=== PATIENT | male | born 1970 | race Caucasian/White ===

== ENCOUNTER 2019-11-24 10:54 | Emergency (ER) | payer OTHER ==
[~2019-11-24] VITALS: Ht 157.5 cm; Wt 77.1 kg
[2019-11-24 11:02] VITALS: Ht 157.5 cm; Wt 77.1 kg
[2019-11-24 13:45] VITALS: BP 154/98
== END 2019-11-24 13:45 | disposition home or self-care (01) ==
LOC: ED 10:54
DX: S61.214A Laceration without foreign body of right ring finger without damage to nail, initial encounter (principal); E78.00 Pure hypercholesterolemia, unspecified; K21.9 Gastro-esophageal reflux disease without esophagitis; W31.2XXA Contact with powered woodworking and forming machines, initial encounter; Y93.89 Activity, other specified; Y92.89 Other specified places as the place of occurrence of the external cause; Y99.8 Other external cause status
CPT/HCPCS: 90715; J2001; Q0092

== ENCOUNTER 2020-03-10 01:02 | Inpatient (IN) | payer OTHER ==
[~2020-03-10] VITALS: Ht 157.5 cm; Wt 80.8 kg
[2020-03-10 01:08] VITALS: Ht 157.5 cm; Wt 80.8 kg
--- NOTE | 2020-03-10 01:39 | NUR ---
PT STATES THAT ABD PAIN STARTED 3 DAYS AGO. AWAKE AND ALERT. AA/OX4. RESP EVEN LAUREL UNLABORED. STATES THAT ABD DISTENTION STARTED AT 1500 TODAY. ABD IS DISTENTED, SOFT, ROUND AND NON RIGID. STATES THAT EPIGASTRIC PAIN RADIATES TO LEFT SHOULDER. DENIES N/V. PT PLACED IN GOWN AND ON FULL CM. IV INSERTED. PT DENIES HAVING TO VOID AT THIS TIME. WILL CONT TO MONITOR.
[2020-03-10 01:45] LABS: BASOPHIL % 0.7 % (0-2); PLATELET COUNT 165 x10^3mcL (130-400); RED CELL DISTRIBUTION WIDTH 12.7 % (11.5-14.5)
[2020-03-10 02:01] LABS: CALCIUM 8.2 mg/dL (8.5-10.1); CARBON DIOXIDE 26.5 mmol/L (21-32); CHLORIDE SERUM 109 mmol/L (98-107); CREATININE SERUM 1.2 mg/dL (0.7-1.3); GFR1 > 60 mL/min; GLUCOSE SERUM 150 mg/dL (74-106); POTASSIUM SERUM 4.1 mmol/L (3.5-5.1); SODIUM SERUM 145 mmol/L (136-145)
[2020-03-10 02:06] LABS: ALBUMIN 3.7 g/dL (3.4-5.0); ALKALINE PHOSPHATASE 127 U/L (46-116); ALT/SGPT 42 U/L (16-63); AST/SGOT 14 U/L (15-37); BILIRUBIN TOTAL 0.44 mg/dL (0.20-1.00); LIPASE 997 IU/L (73-393); TOTAL PROTEIN, SERUM 6.5 g/dL (6.4-8.2)
--- NOTE | 2020-03-10 02:14 | NUR ---
PT AWAKE AND ALERT. SITTING IN BED. AA/OX4. RESP EVEN AND UNLABORED. PT ON FULL CM. WILL CONT TO MONITOR.
--- NOTE | 2020-03-10 03:13 | NUR ---
PT SITTING IN BED IN POSITION OF COMFORT. AWAKE AND ALERT. RESP EVEN AND UNLABORED, URINE COLLECTED. PT ON FULL CM. WILL CONT TO MONITOR.
--- NOTE | 2020-03-10 04:14 | NUR ---
REPORT CALLED TO ISACC RODNEY TO ASSUME CARE OF PT AT THIS TIME.
--- NOTE | 2020-03-10 04:20 | NUR ---
RECEIVED PT FROM ED VIA WHEELCHAIR, CAME IN DUE TO ABDOMINAL PAIN AND BLOATING. AAOX4. DENIES HEADACHE/DIZZINESS. ABLE TO FOLLOW COMMANDS. NO SOB NOTED, LUNG SOUNDS CTA, O2 SAT=98%, RA. DENIES CHEST PAIN/PRESSURE. PULSES ARE PALPABLE. NO EDEMA NOTED. STATED THAT HE HAS 8/10 SHARP AND CONSTANT ABDOMINAL PAIN AND C/O BLOATING. ABDOMEN IS DISTENDED AND FIRM. BOWEL SOUNDS ACTIVE. LAST BM=03/09/20. DENIES NAUSEA/VOMITING. VOIDS. IV SITE PATENT AND INTACT. SIDE RAILS UPX2. CALL LIGHT ON REACH. WILL CONT TO MONITOR
[2020-03-10 04:32] VITALS: BP 135/83
--- NOTE | 2020-03-10 04:53 | NUR ---
PT MEDICATED W/ 4 MG MORPHINE SLOW IVP FOR C/O 02/21 ABDOMINAL PAIN DESCRIBED SHARP AND CONSTANT. CALCIUM LEVEL=8.2, MEDICATED W/ CALCIUM GLUCONATE 1000 MG IN 50 ML NS ORDERED.
--- NOTE | 2020-03-10 05:30 | NUR ---
PT HAS HIS EYES CLOSED, AROUSABLE TO VERBAL STIMULI. NO S/S OF PAIN AND SOB. NEEDS ARE ATTENDED. IV SITE PATENT AND INTACT. SIDE RAILS UPX2. CALL LIGHT ON REACH. WILL CONT TO MONITOR
--- NOTE | 2020-03-10 07:19 | NUR ---
REPORT GIVEN TO [facility] FOR CONTINUITY OF CARE
[2020-03-10 08:38] VITALS: BP 112/64
[2020-03-10 12:12] VITALS: BP 115/64
[2020-03-10 16:49] VITALS: BP 105/68
--- NOTE | 2020-03-10 19:45 | NUR ---
Pt condition remained stable this shift. Pt denies pain, sob, and any other out of control symptoms. No pain med given this shift. IVF infused as ordered. NPO status maintained as ordered. Care endorse to oncoming shift.
[2020-03-10 21:24] VITALS: BP 129/73
--- NOTE | 2020-03-11 04:15 | NUR ---
@ 2000 A/A/O X4.DENIES ANY DISCOMFORT NOR CP @ THIS TIME.DENIES SOB.IVF D51/2NS @ 80 ML/HR INFUSING WELL.INSTRUCTED TO USE CALL LIGHT NEEDED;WITHIN REACH.AFEBRILE.V/S STABLE.O2 SAT ON RA 98%.
--- NOTE | 2020-03-11 04:17 | NUR ---
@ 2200 A/A/OX4. WATCHING TV.DENIES ANY DISCOMFORT @ THIS TIME.
--- NOTE | 2020-03-11 04:19 | NUR ---
@ 0200 RESTING COMFORTABLY IN NO ACUTE DISTRESS.
--- NOTE | 2020-03-11 04:19 | NUR ---
@ 0000 RESTING COMFORTABLY IN NO ACUTE DISTRESS.
[2020-03-11 05:25] VITALS: BP 120/72
--- NOTE | 2020-03-11 05:30 | NUR ---
@ 0400 ASLEEP IN NO ACUTE DISTRESS.IVF INFUSING WELL.
[2020-03-11 06:59] LABS: BASOPHIL % 0.3 % (0-2); PLATELET COUNT 158 x10^3mcL (130-400); RED CELL DISTRIBUTION WIDTH 14.1 % (11.5-14.5)
--- NOTE | 2020-03-11 07:03 | NUR ---
@ 0611 ENDORSEA A/A/O X 4.NO ACUTE DISTRESS.IVF INFUSING WELL.CALL LIGHT WITHIN REACH.SAFETY MAINTAINED.
[2020-03-11 07:06] LABS: CALCIUM 8.1 mg/dL (8.5-10.1); CARBON DIOXIDE 26.4 mmol/L (21-32); CHLORIDE SERUM 104 mmol/L (98-107); CHOLESTEROL 136 mg/dL (<200); GFR1 > 60 mL/min; GLUCOSE SERUM 132 mg/dL (74-106); LIPASE 130 IU/L (73-393); POTASSIUM SERUM 3.6 mmol/L (3.5-5.1); SODIUM SERUM 140 mmol/L (136-145)
[2020-03-11 07:10] LABS: CHOLESTEROL/HDL RATIO 4.7; HDL CHOLESTEROL 29 mg/dL (40-60); TRIGLYCERIDES 313 mg/dL (<150)
--- NOTE | 2020-03-11 07:30 | NUR ---
RECEIVED PT LYING IN BED A/A. BREATHING EQUAL/UNLABORED ON RA. NO ACUTE PAIN/DISTRESS. IVF INFUSING AT 80ML/HR, SITE WNL. BED IN LOW POSITION, CALL LIGHT IN REACH, SAFETY PRECAUTIONS IN PLACE. WILL CONTINUE TO MONTIOR
[2020-03-11 08:15] VITALS: BP 110/68
[2020-03-11 12:24] VITALS: BP 117/72
--- NOTE | 2020-03-11 12:35 | NUR ---
PT LYING IN BED A/A. BREATHING EQUAL/UNLABORD ON RA. NO ACUTE CHANGES/PAIN/DISTRESS. IVF INFUSING, SITE WNL. WILL CONTINUE TO MONTIOR
[2020-03-11 16:48] VITALS: BP 115/71
--- NOTE | 2020-03-11 18:24 | NUR ---
PT LYING IN BED A/A. BREATHING EQUAL/UNLABORED ON RA. NO ACUTE CHANGES/DISTRESS. PT HAS MILD ABD PAIN. PAIN IS TOLEARABLE AT THIS TIME. IVF INFUSING AT 80ML/HR, SITE WNL. BED IN LOW POSITION, CALL LIGHT IN REACH, SAFETY PRECATUIONS IN PLACE. WILL ENDORSE TO NIGHT NURSE
--- NOTE | 2020-03-11 19:35 | NUR ---
RECEIVED PT FROM DAYSPAFT NURSE. PT IS AAOX4, DENIES HEADACHE/NAUSEA/DIZZINESS AT THIS TIME. PT IS MED SURG PATIENT, DENIES CHEST PAIN AT THIS TIME. PULSES ARE EQUAL BILATERALLY, NO EDEMA NOTED. PT IS CTA, ON RA, DENIES SOB AT THIS TIME. ABDOMEN IS SOFT AND ROUND, NO PAIN UPON PALPATION. NORMOACTIVE X4 QUADRANTS, LAST BM 03/10. PT VOIDS FREELY, DENIES PAIN/BURNING. PT DENIES ANY WEAKNESS. SKIN IS DRY AND INTACT, NO LESIONS NOTED. PT STATES HE HAS INTERMITENT PAIN TO UPPER ABDOMINAL PAIN. PT HAS RAC 20 GAUGE IV, IV SITE IS PATENT, NO REDNESS OR SWELLING NOTED. PT HAS D5 1/2NS 80ML/HR RUNNING. PT IS CALM AND COOPERATIVE. ALL COMFORT CARE ACCOUNTED FOR AT THIS TIME. BED IN LOWEST POSITION, CALL LIGHT WITHIN REACH. WILL CONTINUE TO MONITOR.
[2020-03-11 20:21] VITALS: BP 130/80
[2020-03-12 05:21] VITALS: BP 107/70
--- NOTE | 2020-03-12 05:29 | NUR ---
PATIENT RESTED INTERMITTENTLY THROUGHOUT THE NIGHT WITH EYES CLOSED. PATIENT DENIES SOB/CHEST PAIN. NO ACUTE CHANGES HAD IN PATIENT'S STATUS AT THIS TIME. ALL COMFORT CARE ACCOUNTED FOR AT THIS TIME. BED IN LOWEST POSITION, CALL LIGHT WITHIN REACH. WILL CONTINUE TO MONITOR UNTIL APPROPRIATE TO ENDORSE TO DAYSHIFT NURSE.
--- NOTE | 2020-03-12 07:11 | NUR ---
ENDORSED CARE TO DAYSHIFT NURSE. ALL QUESTIONS/CONCERNS ADDRESSED.
[2020-03-12 08:54] VITALS: BP 116/73
[2020-03-12 10:32] VITALS: BP 116/73
--- NOTE | 2020-03-12 12:10 | NUR ---
PT LYING IN BED A/A. BREATHING EQUAL/UNLABORED ON RA. NO ACUTE CHANGES/PAIN/DISTRESS. IVF INFUSING, SITE WNL. WILL CONTINUE TO MONITOR
[2020-03-12 12:24] VITALS: BP 119/77
--- NOTE | 2020-03-12 15:01 | NUR ---
PT DISCHARGED TO HOME. PT A/A, ORIENTED X4. BREATHING EQUAL/UNLABORED ON RA. PT ANANDA FULL LIQUID DIET WITH NO PAIN OR GI DISTRESS. DISCHARGE INSTRUCTIONS, EDUCATION, DIET, AND F/U APPT DISCUSSED WITH PT, PT VERBALIZED UNDERSTANDING. IV REMOVED WITH CATHETER INTACT, SITE WNL. PT BROUGHT DOWN TO LOBBY ACCOMPANIED BY PATIENT SERVICE SPECIALIST. ALL BELONGINGS WITH PT.
== END 2020-03-12 15:01 | disposition home or self-care (01) | DRG 440 ==
LOC: ED 01:02 → MU 03:35
PROVIDERS: Emergency Medicine; ADMIT Internal Medicine Pulmonary Disease; ATTEND Internal Medicine Pulmonary Disease
DX: K85.90 Acute pancreatitis without necrosis or infection, unspecified (principal); E78.00 Pure hypercholesterolemia, unspecified; K21.9 Gastro-esophageal reflux disease without esophagitis; K76.0 Fatty (change of) liver, not elsewhere classified; E66.9 Obesity, unspecified; Z79.899 Other long term (current) drug therapy; Z68.29 Body mass index [BMI] 29.0-29.9, adult
CPT/HCPCS: G0378; J0610; J1650; J2270; J7030; Q0092